=== PATIENT | male | born 1970 | race Caucasian/White ===

== ENCOUNTER 2019-01-09 23:12 | Emergency (ER) | payer SELFPAY ==
[~2019-01-09] VITALS: Ht 165.1 cm; Wt 66.2 kg
[2019-01-09] MEDS ORDERED: BACTRIM DS1 TAB PO (23:58)
[2019-01-10] MEDS ORDERED: CEPHALEXIN500 M1 PO (00:03)
[2019-01-10 00:25] VITALS: BP 152/94
== END 2019-01-10 00:25 | disposition home or self-care (01) | DRG 603 ==
LOC: ED 23:12
PROC: 0H97XZZ Drainage of Abdomen Skin, External Approach (ICD-10-PCS; principal; 2019-01-09)
DX: L02.211 Cutaneous abscess of abdominal wall (principal); S31.119A Laceration without foreign body of abdominal wall, unspecified quadrant without penetration into peritoneal cavity, initial encounter; F17.200 Nicotine dependence, unspecified, uncomplicated; V19.3XXA Pedal cyclist (driver) (passenger) injured in unspecified nontraffic accident, initial encounter

== ENCOUNTER 2019-02-09 22:43 | Emergency (ER) | payer SELFPAY ==
[~2019-02-09] VITALS: Ht 165.1 cm; Wt 90.0 kg
[~2019-02-09 22:43] MED LIST: BACTRIM DS1 TAB PO; CEPHALEXIN500 M1 PO
[2019-02-09 23:33] LABS: URINE BILIRUBIN - DIPSTICK NEGATIVE (NEGATIVE); URINE BLOOD DIPSTICK SMALL (NEGATIVE); URINE COLOR YELLOW; URINE GLUCOSE - DIPSTICK NEGATIVE (NEGATIVE); URINE KETONE NEGATIVE (NEGATIVE); URINE LEUK ESTERASE TRACE (Negative); URINE NITRITE - DIPSTICK POSITIVE (Negative); URINE PH 7.5 (4.5-8.0); URINE PROTEIN - DIPSTICK 100 mg/dL (NEG-TRACE); URINE UROBILINOGEN - DIPSTICK 0.2 E.U./dL (0.2)
[2019-02-09 23:34] LABS: URINE CLARITY CLOUDY
[2019-02-09 23:40] LABS: URINE BACTERIA MANY hpf; URINE SQUAMOUS EPITHELIAL CELL FEW EPI/hpf (0-FEW); URINE WBC 50-100 WBC/hpf (0-5)
[2019-02-09 23:41] LABS: URINE MUCUS MODERATE hpf (NONE-FEW)
[2019-02-09] MEDS ORDERED: PYRIDIUM200 MG PO (23:44)
[2019-02-09] MEDS ORDERED: CIPROFLOXACN500 MG PO (23:44)
[2019-02-10 00:01] VITALS: BP 148/80
[2019-02-11] MEDS ORDERED: TAMSULOSIN0.4 MG PO (17:42)
== END 2019-02-10 00:03 | disposition home or self-care (01) | DRG 690 ==
LOC: ED 22:43
PROVIDERS: Emergency Medicine
DX: N39.0 Urinary tract infection, site not specified (principal); B19.20 Unspecified viral hepatitis C without hepatic coma; F17.210 Nicotine dependence, cigarettes, uncomplicated

== ENCOUNTER 2019-02-11 15:39 | Emergency (ER) | payer SELFPAY ==
[~2019-02-11] VITALS: Ht 165.1 cm; Wt 75.0 kg
[~2019-02-11 15:39] MED LIST changes: +CIPROFLOXACN500 MG PO; +PYRIDIUM200 MG PO
[2019-02-11 16:27] LABS: URINE BILIRUBIN - DIPSTICK NEGATIVE (NEGATIVE); URINE BLOOD DIPSTICK SMALL (NEGATIVE); URINE COLOR YELLOW; URINE GLUCOSE - DIPSTICK NEGATIVE (NEGATIVE); URINE KETONE NEGATIVE (NEGATIVE); URINE PH 6.5 (4.5-8.0); URINE PROTEIN - DIPSTICK 30 mg/dL (NEG-TRACE); URINE SPECIFIC GRAVITY 1.025; URINE UROBILINOGEN - DIPSTICK 0.2 E.U./dL (0.2)
[2019-02-11 16:37] LABS: URINE LEUK ESTERASE SMALL (NEGATIVE); URINE NITRITE - DIPSTICK POSITIVE (Negative)
[2019-02-11 17:00] LABS: URINE AMORPH SEDIMENT MODERATE hpf (NONE-FER); URINE BACTERIA FEW hpf
[2019-02-11 17:11] LABS: HEMOGLOBIN 12.5 g/dl (14.0-18.0); IMMATURE GRANULOCYTES 0.7 % (0.0-5.0); MEAN CELL VOLUME 95.7 fL CALC (80.0-100.0); MEAN CORPUSCULAR HGB 31.5 pG CALC (26.0-32.0); MEAN CORPUSCULAR HGB CONC 32.9 g/L CALC (32.0-36.0); NEUT# 7.45 thou/uL (1.82-7.42); RED BLOOD COUNT 3.97 mill/uL (4.70-6.10); RED CELL DISTRI WIDTH 12.5 % (11.5-15.5)
[2019-02-11 17:33] LABS: ALBUMIN 3.3 g/dL (3.2-5.0); ALKALINE PHOSPHATASE 82 u/l (38-126); ANION GAP 14 (6-22 (CALC)); BILIRUBIN, TOTAL 0.4 mg/dL (0.0-1.4); BUN 18 mg/dL (9-20); BUN/CREATININE RATIO 21 (12-20 (CALC)); CARBON DIOXIDE 28 mmol/l (22-30); CHLORIDE 105 mmol/l (95-108); CREATININE 0.9 mg/dL (0.7-1.3); GFR > 60 ML/MIN (>=60 (CALC)); GFR FOR AFR.AMER. > 60 ML/MIN (>=60 (CALC)); POTASSIUM 4.6 mmol/l (3.5-5.1); SGOT/AST 27 u/l (17-59); SODIUM 142 mmol/l (137-146); TOTAL PROTEIN 7.5 g/dL (6.3-8.2)
[2019-02-11] MEDS ORDERED: TAMSULOSIN0.4 MG PO (17:42)
[2019-02-11 17:52] VITALS: BP 159/104
--- NOTE | 2019-02-13 14:45 | NUR ---
Called number on file. Was not patient's number but someone related to him. Realative states that they will have pt call the pharmacy when they see him (within 1 hour). If they call when I am not there: Was calling concerning changing ciprofloxacin to doxyxycline and asking which pharmacy to call it into.
== END 2019-02-11 17:52 | disposition home or self-care (01) | DRG 690 ==
LOC: ED 15:39
PROVIDERS: Emergency Medicine
PROC: 0T9B70Z Drainage of Bladder with Drainage Device, Via Natural or Artificial Opening (ICD-10-PCS; principal; 2019-02-11)
DX: N39.0 Urinary tract infection, site not specified (principal); R33.9 Retention of urine, unspecified; B95.62 Methicillin resistant Staphylococcus aureus infection as the cause of diseases classified elsewhere; B19.20 Unspecified viral hepatitis C without hepatic coma; F17.210 Nicotine dependence, cigarettes, uncomplicated

== ENCOUNTER 2020-02-22 03:23 | Emergency (ER) | payer SELFPAY ==
[~2020-02-22] VITALS: Ht 172.7 cm; Wt 68.0 kg
[~2020-02-22 03:23] MED LIST changes: +TAMSULOSIN0.4 MG PO
[2020-02-22] MEDS ORDERED: CIPROFLOXACN500 MG PO (03:51)
[2020-02-22] MEDS ORDERED: PYRIDIUM200 MG PO (03:51)
[2020-02-22 04:00] VITALS: BP 147/86
[2020-02-22 04:01] LABS: URINE BILIRUBIN - DIPSTICK NEGATIVE (NEGATIVE); URINE BLOOD DIPSTICK NEGATIVE (NEGATIVE); URINE COLOR YELLOW; URINE GLUCOSE - DIPSTICK NEGATIVE (NEGATIVE); URINE KETONE NEGATIVE (NEGATIVE); URINE PROTEIN - DIPSTICK NEGATIVE (NEG-TRACE); URINE SPECIFIC GRAVITY 1.025; URINE UROBILINOGEN - DIPSTICK 0.2 E.U./dL (0.2)
[2020-02-22 04:05] LABS: URINE LEUK ESTERASE SMALL (NEGATIVE)
[2020-02-22 04:07] LABS: URINE NITRITE - DIPSTICK NEGATIVE (Negative)
[2020-02-22 04:12] LABS: URINE WBC >100 WBC/hpf (0-5)
== END 2020-02-22 04:08 | disposition home or self-care (01) | DRG 951 ==
LOC: ED 03:23
DX: Z11.3 Encounter for screening for infections with a predominantly sexual mode of transmission (principal); R30.0 Dysuria; B19.20 Unspecified viral hepatitis C without hepatic coma; F17.210 Nicotine dependence, cigarettes, uncomplicated